=== PATIENT | female | born 1970 | race Caucasian/White ===

== ENCOUNTER → 2016-07-22 | Outpatient (CLI) | payer OTHER ==
--- NOTE | 2016-07-22 12:25 | CT ---
EXAMINATION TYPE: CT brain wo con DATE OF EXAM: 07/22/2016 12:15 PM COMPARISON: 10/16/2014 HISTORY: 45-year-old female with TIA, complains of right forearm and hand numbness. TECHNIQUE: Examination was done in axial plane without intravenous contrast. Coronal and sagittal r econstructions performed. CT DLP: 999.18 mGycm Automated exposure control for dose reduction was used. FINDINGS: There is no evidence of acute intracranial hemorrhage, acute ischemic changes, mass, mass-effect, or extra-axial fluid collection. There is no effacement of cerebral sulci or basal subarachnoid cister ns. There is no hydrocephalus. There is no midline shift. Monroy-white matter distinction is preserv ed. Partial opacification inferior mastoid air cells on both sides. Visualized paranasal sinuses and orbi ts and globes appear within normal limits. IMPRESSION: 1. No acute intracranial abnormality seen. 2. Retained secretions within the mastoid air cells similar to 10/16/2014. Correlate for any mastoid p ain to exclude mastoiditis.
== END | disposition home or self-care (01) ==
LOC: RADCTMAIN 11:40
PROVIDERS: ATTEND Family Medicine
DX: G45.9 Transient cerebral ischemic attack, unspecified (principal)
CPT/HCPCS: 70450

== ENCOUNTER → 2016-08-21 | Day surgery (SDC) | payer OTHER ==
[~2016-08-21] MED LIST: LACTATED RINGERS 1,000 ML IV SCH; MIDAZOLAM 2 MG/2 ML VIAL IVP NR; fentaNYL (PF) 50 MCG/ML 2 ML AMP IV NR
[2016-08-21 11:52] VITALS: RESP 16; TEMP 98.2
[2016-08-21 11:55] VITALS: BP 117/71; PULSE 99
--- NOTE | 2016-08-21 12:36 | P.PCN ---
Date of Procedure: 08/21/16 Preoperative Diagnosis: Postoperative Diagnosis: Procedure(s) Performed: Procedure=1-lumbar puncture . Preoperative diagnoses= multiple sclerosis. Postoperative diagnosis= multiple sclerosis. Anesthesia= IV sedation with Versed 1 mg and fentanyl 50 mcg ,and local lidocaine infiltration 1% 2 mL for skin and subcu infiltration. Condition= stable. Complications=none. Indication for the procedure= patient with a history of symptoms suggestive of multiple sclerosis and she was referred to have a lumbar puncture for diagnostic study procedure risk and benefits and alternatives discussed with the patient and she agreed with the preceding, Description of the procedure= patient in the procedure room sitting position and monitors applied, the back prepped with chlorhexidine 3, sterile technique , local infiltration of the skin and subcu interstitial with lidocaine 1% 2 mL, then 22-gauge quickie Needle advanced slowly at L4 5 interlaminar space, the cerebrospinal fluid was clear, and no heme no paresthesia, a total of 8 mL of clear cerebrospinal fluid collected in 4 different tubes, the needle removed, Band-Aid applied , patient tolerated the procedure well without any complications, and further management as per her neurologist Implants: Indications for Procedure: Operative Findings: Description of Procedure:
[2016-08-21 15:09] LABS: Glucose,CSF 60 mg/dL (40-70)
[2016-08-21 15:44] LABS: Appearance,CSF Clear
[2016-08-21 16:00] LABS: ALT 45 U/L (9-52); AST 31 U/L (14-36)
[2016-08-21 16:04] LABS: Rheumatoid Factor, Qnt <9 IU/mL (<12)
[2016-08-21 19:38] LABS: Treponemal Ab Non-Reactive (Non-Reactive)
[2016-08-21 21:16] LABS: ANA w/Reflex to Titer NEGATIVE (NEGATIVE)
[2016-08-22 03:08] LABS: Lyme Antibodies Total(IgG/IgM) 0.05 (<0.90)
[2016-08-23 12:01] LABS: IgG Synthesis Rate 0.29 mg/day (0.00 - 3.00); Immunoglobulin G 927 mg/dL (700 - 1600)
[2016-08-25 05:20] LABS: Lyme Specimen Source Not Provided
== END ==
LOC: PROCWHC3 11:21
PROVIDERS: ATTEND Specialist
DX: G35 Multiple sclerosis (principal)
CPT/HCPCS: 86235 ×3; 87476; 86592; 86618; 84439; 88108; 84157; 82945; 82040; 82042; 82784; 83916; 82164 ×2; 83873; 84443; 84450; 84460; 85730; 86431; 85613; 89050; 86780; 86038; 86225; 96374; 62270; 36415; J2250; J3010

== ENCOUNTER 2019-06-09 07:19 | Emergency (ER) | payer SELFPAY ==
[2019-06-09 07:30] VITALS: TEMP 97.5
[2019-06-09] MEDS ORDERED: KETOROLAC 30 MG/ML 1 ML VIAL IVP STA (07:42)
[2019-06-09] MEDS ORDERED: SODIUM CHLORIDE 0.9% 1,000 ML IV STA (07:42)
[2019-06-09] MEDS ORDERED: MORPHINE SULFATE 4 MG/ML SYRINGE IV STA (07:42)
[2019-06-09] MEDS ORDERED: ORPHENADRINE 30 MG/ML 2 ML VIAL IVP STA (07:43)
--- NOTE | 2019-06-09 07:48 | ED ---
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 Patient is a nurse aide. Patient states that she is having some back spasms and pain breathing as well as noted dysuria. Patient reports that she's had no fever. She reports that the pain radiates from around her left flank area. She does reports worse with movement. Patient states she's had no other complaints. - Related Data Home Medications Medication Instructions Recorded Confirmed Levothyroxine Sodium [Synthroid] 112 mcg PO DAILY 09/11/14 01/25/17 Gabapentin [Neurontin] 300 mg PO TID 08/21/16 01/25/17 Ibuprofen [Motrin] 800 mg PO TID PRN 08/21/16 01/25/17 Pregabalin [Lyrica] 75 mg PO TID 08/21/16 01/25/17 Ciprofloxacin HCl [Cipro] 500 mg PO Q12HR 01/25/17 01/25/17 methylPREDNISolone [Medrol Dose 4 mg PO DIRECTED 01/25/17 01/25/17 Pack] Previous Rx's Medication Instructions Recorded Cephalexin [Keflex] 500 mg PO Q8HR #21 cap 06/09/19 Ibuprofen [Motrin] 800 mg PO Q8H #20 tab 06/09/19 Orphenadrine [Norflex] 100 mg PO Q12H #12 tablet.er 06/09/19 Allergies Allergy/AdvReac Type Severity Reaction Status Date / Time Penicillins Allergy Unknown Verified 01/25/17 01:39 Childhood Review of Systems ROS Statement: Those systems with pertinent positive or pertinent negative responses have been documented in the HPI. ROS Other: All systems not noted in ROS Statement are negative. Past Medical History Past Medical History: Thyroid Disorder Additional Past Medical History / Comment(s): Lumbar puncture being done 08-21-16 to rule out MS. bladder dysfunction - 8 years ago (straight cathed for 6 months) unknown reason History of Any Multi-Drug Resistant Organisms: None Reported Past Surgical History: Tubal Ligation Additional Past Surgical History / Comment(s): thyroid removed Past Psychological History: No Psychological Hx Reported Smoking Status: Current every day smoker Past Alcohol Use History: Occasional Past Drug Use History: None Reported General Exam - General Exam Comments Initial Comments: Alert and oriented 48-year-old female. No distress. Limitations: no limitations General appearance: alert, in no apparent distress Head exam: Present: atraumatic, normocephalic, normal inspection Eye exam: Present: normal appearance, PERRL, EOMI. Absent: scleral icterus, conjunctival injection, periorbital swelling ENT exam: Present: normal exam, mucous membranes moist Neck exam: Present: normal inspection. Absent: tenderness, meningismus, lymphadenopathy Respiratory exam: Present: normal lung sounds bilaterally. Absent: respiratory distress, wheezes, rales, rhonchi, stridor Cardiovascular Exam: Present: regular rate, normal rhythm, normal heart sounds. Absent: systolic murmur, diastolic murmur, rubs, gallop, clicks GI/Abdominal exam: Present: soft, normal bowel sounds. Absent: distended, tenderness, guarding, rebound, rigid Extremities exam: Present: normal inspection, full ROM, normal capillary refill. Absent: tenderness, pedal edema, joint swelling, calf tenderness Back exam: Present: normal inspection, tenderness (Over lumbar spine) Neurological exam: Present: alert, oriented X3, CN II-XII intact Psychiatric exam: Present: normal affect, normal mood Skin exam: Present: warm, dry, intact, normal color. Absent: rash Course Vital Signs 06/09/19 06/09/19 06/09/19 07:28 07:30 08:30 Temperature 97.5 F L Pulse Rate 84 78 Respiratory 17 20 Rate Blood Pressure 132/84 O2 Sat by Pulse 100 98 Oximetry 06/09/19 06/09/19 06/09/19 09:00 09:07 09:10 Temperature Pulse Rate 80 Respiratory Rate Blood Pressure 119/77 O2 Sat by Pulse 99 100 99 Oximetry 06/09/19 06/09/19 06/09/19 09:20 09:30 09:40 Temperature Pulse Rate Respiratory Rate Blood Pressure 119/77 119/77 104/73 O2 Sat by Pulse 100 99 98 Oximetry 06/09/19 10:31 Temperature Pulse Rate 72 Respiratory 16 Rate Blood Pressure 113/67 O2 Sat by Pulse 98 Oximetry Medical Decision Making - Medical Decision Making [id number] female presents lower back pain. Patient was given IV pain medication however 15. Blood work and labs are unremarkable. She does have some minor any symptoms of UTI. Discussed culture we completed. Patient advised this time but no clinical concern for pyelonephritis. Patient's pain is reproducible with movement. Patient discharged and temperature medicine. Given a note for work for avoiding heavy straining or lifting patients. - Lab Data Result diagrams: 06/09/19 08:20 06/09/19 08:20 Lab Results 06/09/19 06/09/19 06/09/19 Range/Units 08:20 08:20 08:20 WBC 8.6 (3.8-10.6) k/uL RBC 4.59 (3.80-5.40) m/uL Hgb 14.6 (11.4-16.0) gm/dL Hct 44.6 (34.0-46.0) % MCV 97.2 (80.0-100.0) fL MCH 31.8 (25.0-35.0) pg MCHC 32.7 (31.0-37.0) g/dL RDW 13.5 (11.5-15.5) % Plt Count 333 (150-450) k/uL Neutrophils % 75 % Lymphocytes % 17 % Monocytes % 5 % Eosinophils % 1 % Basophils % 1 % Neutrophils # 6.5 (1.3-7.7) k/uL Lymphocytes # 1.4 (1.0-4.8) k/uL Monocytes # 0.4 (0-1.0) k/uL Eosinophils # 0.0 (0-0.7) k/uL Basophils # 0.0 (0-0.2) k/uL Sodium 137 (137-145) mmol/L Potassium 4.5 (3.5-5.1) mmol/L Chloride 103 (98-107) mmol/L Carbon Dioxide 27 (22-30) mmol/L Anion Gap 7 mmol/L BUN 23 H (7-17) mg/dL Creatinine 0.64 (0.52-1.04) mg/dL Est GFR (CKD-EPI)AfAm >90 (>60 ml/min/1.73 sqM) Est GFR (CKD-EPI)NonAf >90 (>60 ml/min/1.73 sqM) Glucose 128 H (74-99) mg/dL Calcium 9.4 (8.4-10.2) mg/dL Total Bilirubin 0.3 (0.2-1.3) mg/dL AST 23 (14-36) U/L ALT 16 (4-34) U/L Alkaline Phosphatase 108 (38-126) U/L Total Protein 7.6 (6.3-8.2) g/dL Albumin 4.4 (3.5-5.0) g/dL Lipase 82 (23-300) U/L Urine Color Yellow Urine Appearance Clear (Clear) Urine pH 5.5 (5.0-8.0) Ur Specific [place] 1.023 (1.001-1.035) Urine Protein Negative (Negative) Urine Glucose (UA) Negative (Negative) Urine Ketones Negative (Negative) Urine Blood Trace H (Negative) Urine Nitrite Negative (Negative) Urine Bilirubin Negative (Negative) Urine Urobilinogen <2.0 (<2.0) mg/dL Ur Leukocyte Esterase Moderate H (Negative) Urine RBC 3 (0-5) /hpf Urine WBC 9 H (0-5) /hpf Ur Squamous Epith Cells 3 (0-4) /hpf Urine Bacteria Rare H (None) /hpf Urine Mucus Rare H (None) /hpf - Radiology Data Radiology results: report reviewed Patchy attenuation in the left perihilar region is likely artifactual. Prominent hilum may reflect pulmonary arteries or pulmonary hypertension. Short-term computed tomography scan to be obtained if there is concern for at an opacity or pulmonary arterial hypertension. Correlating for COPD. KUB shows nonspecific abdomen. Lumbar spine x-ray shows fast arthropathy at L5-S1. Follow-up MRI can be obtained is warranted. Disposition Clinical Impression: Back spasm, UTI (urinary tract infection) Disposition: HOME SELF-CARE Condition: Good Instructions (If sedation given, give patient instructions): Urinary Tract Inf ection in Women (ED), Muscle Spasm (ED) Additional Instructions: Please use medication as discussed. Please follow up with family doctor if symptoms have not improved over the next two days. Please return to the emergency room if your symptoms increase or worsen or for any other concerns. Prescriptions: Cephalexin [Keflex] 500 mg PO Q8HR #21 cap Ibuprofen [Motrin] 800 mg PO Q8H #20 tab Orphenadrine [Norflex] 100 mg PO Q12H #12 tablet.er Is patient prescribed a controlled substance at d/c from ED?: No Referrals: Sergio Shaffer MD [Primary Care Provider] - 1-2 days Time of Disposition: 10:09
[2019-06-09 08:42] LABS: Basophils % (A) 1 %; Eosinophils % (A) 1 %; HCT 44.6 % (34.0-46.0); HGB 14.6 gm/dL (11.4-16.0); Lymphocytes # (A) 1.4 k/uL (1.0-4.8); Lymphocytes % (A) 17 %; MCH 31.8 pg (25.0-35.0); MCHC 32.7 g/dL (31.0-37.0); MCV 97.2 fL (80.0-100.0); Mean Platelet Volume 7.2; Monocytes # (A) 0.4 k/uL (0-1.0); Monocytes % (A) 5 %; Neutrophils # (A) 6.5 k/uL (1.3-7.7); Neutrophils % (A) 75 %; Platelet Count 333 k/uL (150-450); RBC 4.59 m/uL (3.80-5.40); RDW 13.5 % (11.5-15.5); WBC 8.6 k/uL (3.8-10.6)
[2019-06-09 08:45] LABS: ALT 16 U/L (4-34); AST 23 U/L (14-36); African American GFR (CKD) >90 (>60 ml/min/1.73 sqM); Albumin 4.4 g/dL (3.5-5.0); Alkaline Phosphatase 108 U/L (38-126); Anion Gap 7 mmol/L; Blood Urea Nitrogen 23 mg/dL (7-17); Calcium 9.4 mg/dL (8.4-10.2); Carbon Dioxide 27 mmol/L (22-30); Chloride 103 mmol/L (98-107); Glucose 128 mg/dL (74-99); Non-African American GFR(CKD) >90 (>60 ml/min/1.73 sqM); Potassium 4.5 mmol/L (3.5-5.1); Sodium 137 mmol/L (137-145); Total Bilirubin 0.3 mg/dL (0.2-1.3); Total Protein 7.6 g/dL (6.3-8.2)
--- NOTE | 2019-06-09 08:47 | XR ---
EXAMINATION TYPE: XR KUB DATE OF EXAM: 06/09/2019 COMPARISON: NONE HISTORY: Pain TECHNIQUE: One view abdominal series FINDINGS: The osseous structures are intact. The bowel gas pattern is nonspecific. Lung bases are clear. Lakeisha ined fecal debris throughout the left colon. IMPRESSION: 1. Nonspecific abdomen.
--- NOTE | 2019-06-09 08:47 | XR ---
EXAMINATION TYPE: XR chest 2V DATE OF EXAM: 06/09/2019 COMPARISON: 01/25/2017 TECHNIQUE: PA and lateral views submitted. HISTORY: Chest pain FINDINGS: The lungs are clear and there is no pneumothorax, pleural effusion, or focal pneumonia. Mild promin ence of the pulmonary arteries is stable. Mild hyperinflation. Hypertrophic and degenerative change o f the spine. Patchy density in the left upper lobe. IMPRESSION: 1. Patchy attenuation the left perihilar region likely is artifactual correlate clinically. 2. Prominent hilum bilaterally may reflect prominent pulmonary arteries and pulmonary arterial hypert ension. Correlate clinically. Short-term follow-up CT scan of the chest could BE obtained if there is concern for adenopathy or pulmonary arterial hypertension. 3. Correlate for COPD.
--- NOTE | 2019-06-09 08:48 | XR ---
EXAM TYPE: LUMBAR SPINE X RAY SERIES COMPARISON: NONE HISTORY: Pain TECHNIQUE: 3 views are submitted. FINDINGS: Alignment is anatomic. The pedicles are intact. The transverse processes are intact. There is no s pondylolisthesis. Chronic appearing deformity of the left transverse process. Vascular calcification s noted. Facet arthropathy L5-S1. IMPRESSION: 1. Facet arthropathy L5-S1. Follow-up MRI could BE obtained as clinically warranted..
[2019-06-09 09:17] LABS: Appearance,Urine Clear (Clear); Bacteria,Urine Rare /hpf; Bilirubin,Urine Negative (Negative); Blood,Urine Trace (Negative); Color,Urine Yellow; Glucose,Urine (UA) Negative (Negative); Ketones,Urine Negative (Negative); Leukocyte Esterase,Urine Moderate (Negative); Mucus,Urine Rare /hpf; Nitrite,Urine Negative (Negative); PH, Urine 5.5 (5.0-8.0); Protein,Urine Negative (Negative); RBC,Urine 3 /hpf (0-5); Specific Gravity,Urine 1.023 (1.001-1.035); Squamous Epithelial Cell,Urine 3 /hpf (0-4); Urobilinogen,Urine <2.0 mg/dL (<2.0); WBC,Urine 9 /hpf (0-5)
[2019-06-09 10:32] VITALS: BP 113/67; PULSE 72; RESP 16
== END 2019-06-09 10:32 | disposition home or self-care (01) ==
LOC: EC 07:19
DX: N39.0 Urinary tract infection, site not specified (principal); E07.9 Disorder of thyroid, unspecified; F17.200 Nicotine dependence, unspecified, uncomplicated; Z88.0 Allergy status to penicillin; Z79.52 Long term (current) use of systemic steroids; Z79.890 Hormone replacement therapy; Z79.899 Other long term (current) drug therapy
CPT/HCPCS: 36415; 80053; 83690; 85025; 81001; 72100; 71046; 74018; 99284; 96374; 96375 ×2; 96361; J2270; J2360; J1885

== ENCOUNTER 2019-10-25 02:53 | Emergency (ER) | payer OTHER ==
[2019-10-25 03:02] VITALS: RESP 18
[2019-10-25] MEDS ORDERED: IBUPROFEN 600 MG TAB PO STA (03:13)
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
[2019-10-25] MEDS ORDERED: ACET/COD 300 MG/30 MG STARTER PACK 6 TAB BTL PO STA (03:23)
--- NOTE | 2019-10-25 03:48 | XR ---
EXAMINATION TYPE: XR ankle complete LT DATE OF EXAM: 10/25/2019 COMPARISON: NONE HISTORY: Pain. TECHNIQUE: 3 views FINDINGS: There is soft tissue swelling over the lateral malleolus. I see no fracture nor dislocation . Joint spaces are normal. IMPRESSION: Soft tissue swelling. No fracture seen.
--- NOTE | 2019-10-25 03:50 | XR ---
EXAMINATION TYPE: XR foot complete LT DATE OF EXAM: 10/25/2019 COMPARISON: NONE HISTORY: Fall. Pain. TECHNIQUE: 3 views FINDINGS: Metatarsals are intact. I see no fracture nor dislocation. Joint spaces appear normal. IMPRESSION: Negative left foot exam. No fracture.
[2019-10-25 04:20] VITALS: BP 121/73; PULSE 74; TEMP 98
== END 2019-10-25 04:15 | disposition home or self-care (01) ==
LOC: EC 02:53
DX: S99.912A Unspecified injury of left ankle, initial encounter (principal); M79.89 Other specified soft tissue disorders; F17.200 Nicotine dependence, unspecified, uncomplicated; E07.9 Disorder of thyroid, unspecified; Z79.890 Hormone replacement therapy; Z88.0 Allergy status to penicillin; V20.1 Motorcycle passenger injured in collision with pedestrian or animal in nontraffic accident
CPT/HCPCS: 99283

== ENCOUNTER 2022-03-24 17:46 | Emergency (ER) | payer OTHER ==
[2022-03-24] MEDS ORDERED: ACETAMINOPHEN TAB 500 MG TAB PO STA (18:06)
--- NOTE | 2022-03-24 18:14 | ED ---
URI HPI - General Chief Complaint: Upper Respiratory Infection Stated Complaint: NVD,Fever Time Seen by Provider: 03/24/22 18:00 Source: patient, RN notes reviewed Mode of arrival: ambulatory Limitations: no limitations - History of Present Illness Initial Comments: This is a pleasant 51-year-old female with history of cigarette smoking and thyroid disease. Patient presents to the emergency department today complaining of body aches, fever, cough, runny nose, nausea, diarrhea. Patient describing some chest discomfort only with coughing. No abdominal pain. Denies significant headache or neck stiffness, no changes in vision or hearing, no sore throat or difficulty with speech, no neck pain, no chest pain or shortness of breath, no abdominal pain, no numbness or tingling, no extremity pain, no skin rashes or lesions. Past medical, surgical, social, and family history reviewed. MD Complaint: fever, cough, rhinorrhea, nasal congestion - Related Data Home Medications Medication Instructions Recorded Confirmed Levothyroxine Sodium [Synthroid] 112 mcg PO DAILY 09/11/14 01/25/17 Gabapentin [Neurontin] 300 mg PO TID 08/21/16 01/25/17 Ibuprofen [Motrin] 800 mg PO TID PRN 08/21/16 01/25/17 Pregabalin [Lyrica] 75 mg PO TID 08/21/16 01/25/17 Ciprofloxacin HCl [Cipro] 500 mg PO Q12HR 01/25/17 01/25/17 methylPREDNISolone [Medrol Dose 4 mg PO DIRECTED 01/25/17 01/25/17 Pack] Previous Rx's Medication Instructions Recorded Cephalexin [Keflex] 500 mg PO Q8HR #21 cap 06/09/19 Ibuprofen [Motrin] 800 mg PO Q8H #20 tab 06/09/19 Orphenadrine [Norflex] 100 mg PO Q12H #12 tablet.er 06/09/19 Allergies Allergy/AdvReac Type Severity Reaction Status Date / Time Penicillins Allergy Unknown Verified 03/24/22 17:56 Childhood Review of Systems ROS Statement: Those systems with pertinent positive or pertinent negative responses have been documented in the HPI. ROS Other: All systems not noted in ROS Statement are negative. Past Medical History Past Medical History: Thyroid Disorder Additional Past Medical History / Comment(s): Lumbar puncture being done 08-21-16 to rule out MS. bladder dysfunction - 8 years ago (straight cathed for 6 months) unknown reason History of Any Multi-Drug Resistant Organisms: None Reported Past Surgical History: Tubal Ligation Additional Past Surgical History / Comment(s): thyroid removed Past Psychological History: No Psychological Hx Reported Smoking Status: Current every day smoker Past Alcohol Use History: Occasional Past Drug Use History: None Reported General Exam - General Exam Comments Initial Comments: Patient mild distress. Does not appear to be in any respiratory distress. Appears to be ill but not toxic. Well hydrated. Capillary refill normal. No mottling Limitations: no limitations General appearance: alert, in no apparent distress, in distress Head exam: Present: atraumatic, normocephalic, normal inspection Eye exam: Present: normal appearance, PERRL, EOMI. Absent: scleral icterus, conjunctival injection, periorbital swelling ENT exam: Present: normal exam, normal oropharynx, mucous membranes moist, TM's normal bilaterally, normal external ear exam, other (Patient has a mucoid nasal discharge with nasal stuffiness). Absent: mucous membranes dry Neck exam: Present: normal inspection, full ROM, lymphadenopathy (Nontender posterior cervical lymphadenopathy). Absent: tenderness, meningismus Respiratory exam: Present: rhonchi (Scattered rhonchi bilaterally), chest wall tenderness. Absent: normal lung sounds bilaterally, respiratory distress, wheezes, rales, stridor, accessory muscle use, decreased breath sounds, prolonged expiratory Cardiovascular Exam: Present: regular rate, normal rhythm, normal heart sounds. Absent: systolic murmur, diastolic murmur, rubs, gallop, clicks GI/Abdominal exam: Present: soft, normal bowel sounds. Absent: distended, tenderness, guarding, rebound, rigid Extremities exam: Present: normal inspection, full ROM, normal capillary refill. Absent: tenderness, pedal edema, joint swelling, calf tenderness Back exam: Present: normal inspection Neurological exam: Present: alert, oriented X3, CN II-XII intact Psychiatric exam: Present: normal affect, normal mood Skin exam: Present: warm, dry, intact, normal color. Absent: rash Course Vital Signs 03/24/22 03/24/22 17:54 19:30 Temperature 100.6 F H 100.0 F H Pulse Rate 104 H Respiratory 20 Rate Blood Pressure 131/85 O2 Sat by Pulse 96 Oximetry - Reevaluation(s) Reevaluation #1: 12/25/22 20:34 Medical record is reviewed Symptoms are improved here in the emergency department Patient is informed of results and questions answered Patient in no distress Medical Decision Making - Medical Decision Making Was pt. sent in by a medical professional or institution? @ -no Did you speak to anyone other than the patient for history? @ -no Did you review nursing and triage notes? @ -yes Were old charts reviewed? @ -no Differential Diagnosis? @ -Differential diagnosis: Influenza, COVID-19, RSV, other viral illness with subsequent viral syndrome. I will your eye, Possible bacterial pneumonia Does not appear to be consistent with cardiac disease. Does not appear to be consistent with other intra-abdominal pathology such as cholecystitis or appendicitis. This is not all-inclusive list. EKG interpreted by me (3pts min.)? @ - X-rays interpreted by me (1pt min.)? @ -[none] CT interpreted by me (1pt min.)? @ -[none] U/S interpreted by me (1pt. min.)? @ -[none] What testing was considered but not performed? (CT, X-rays, U/S, labs)? Why? @I did consider laboratory investigations to include blood work such as CBC, CMP, however patient appears to have symptoms consistent with a viral upper respiratory infection. I do not believe this would change the disposition or treatment plan. These were deferred. What meds were considered but not given? Why? @ -[none] Did you discuss the management of the patient with other professionals? @ -ED attending physician Did you reconcile home meds? @ -[none] Was smoking cessation discussed for >3mins.? @ -I discussed smoking cessation for greater than 3 minutes. The risk of smoking were discussed with the patient including but not limited to risks of cancer, stroke, coronary artery disease and COPD. Also discussed with patient were multiple methods of quitting smoking. Lastly we discussed the financial cost of smoking. Was critical care preformed (if so, how long)? @ -[none] Were there social determinants of health that impacted care today? How? (Homelessness, low income, unemployed, alcoholism, drug addiction, transportation, low edu. Level, literacy, decrease access to med. care, longterm, rehab)? @ -Not applicable Was there de-escalation of care discussed even if they declined? (Discuss DNR or withdrawal of care, Hospice)? @ -Not applicable What co-morbidities impacted this encounter? (DM, HTN, Smoking, COPD, CAD, Cancer, CVA, Hep., AIDS, mental health diagnosis, sleep apnea, morbid obesity)? @ -Thyroid disease, cigarette smoking Was patient admitted / discharged? @ -[Patient was much improved after antipyretics and antiemetics. Patient positive for influenza A. Discussed disease course and prognosis. Discussed conservative therapy.] Undiagnosed new problem with uncertain prognosis? @ -[none] Drug Therapy requiring intensive monitoring for toxicity (Heparin, Nitro, Insulin, Cardizem)? @ -[none] Were any procedures done? @ -[none] Diagnosis/symptom? @ -[default] Acute, or Chronic, or Acute on Chronic? @ -Acute Uncomplicated (without systemic symptoms) or Complicated (systemic symptoms)? @ -Uncomplicated Side effects of treatment? @ -[none] Exacerbation, Progression, or Severe Exacerbation] @ -[no] Poses a threat to life or bodily function? @ -Unlikely Patient was told to return to the ER for any signs or symptoms worsen. Told to return immediately if any other problems arise. All questions answered. Treatment plan discussed. Patient in agreement Every effort has been made to ensure accuracy of this dictation. However, due to the limitations of electronic medical records and dictation devices, errors in charting still occur. The case was discussed in detail with ED attending physician. Presentation, findings, treatment plan discussed in detail. Supervising physician Dr. Washburn - Lab Data Lab Results 03/24/22 Range/Units 18:30 Influenza Type A (PCR) Detected A (Not Detectd) Influenza Type B (PCR) Not Detected (Not Detectd) RSV (PCR) Not Detected (Not Detectd) SARS-CoV-2 (PCR) Not Detected (Not Detectd) - Radiology Data Radiology results: report reviewed, image reviewed Two-view chest x-ray interpreted by me shows no evidence of acute findings. I did review the radiology interpretation. Disposition Clinical Impression: Influenza A, Nausea Disposition: HOME SELF-CARE Condition: Good Instructions (If sedation given, give patient instructions): Influenza (ED) Additional Instructions: Follow-up with your regular physician as directed. Return to the ER immediately if any symptoms worsen, new symptoms arise, or any other problems develop. Is patient prescribed a controlled substance at d/c from ED?: No Referrals: Karina Hardin MD [STAFF PHYSICIAN] - 03/29/22 Time of Disposition: 20:35
--- NOTE | 2022-03-24 18:25 | XR ---
EXAMINATION TYPE: XR chest 2V DATE OF EXAM: 03/24/2022 COMPARISON: 06/09/2019 HISTORY: Cough TECHNIQUE: FINDINGS: Heart and mediastinum are normal. Lungs are clear. Diaphragm is normal. Bony thorax is inta ct. IMPRESSION: Normal chest. No change.
[2022-03-24 19:48] VITALS: TEMP 100
[2022-03-24] MEDS ORDERED: ONDANSETRON ODT 4 MG TAB PO STA (20:06)
[2022-03-24] MEDS ORDERED: ONDANSETRON 4 MG ODT STARTER PACK 2 TAB BTL PO STA (20:34)
[2022-03-24 21:00] VITALS: BP 134/78; PULSE 88; RESP 16
== END 2022-03-24 21:01 | disposition home or self-care (01) ==
LOC: EC 17:46
DX: J10.1 Influenza due to other identified influenza virus with other respiratory manifestations (principal); E07.9 Disorder of thyroid, unspecified; F17.200 Nicotine dependence, unspecified, uncomplicated; Z88.0 Allergy status to penicillin; Z79.890 Hormone replacement therapy; Z20.822 Contact with and (suspected) exposure to COVID-19
CPT/HCPCS: 87636; 71046; 99284; S0119

== ENCOUNTER → 2023-12-04 | Outpatient (CLI) | payer OTHER ==
[2023-12-04 18:23] LABS: Basophils # (A) 0.06 X 10*3/uL (0.00-0.10); Basophils % (A) 1.3 %; Eosinophils # (A) 0.05 X 10*3/uL (0.04-0.35); Eosinophils % (A) 1.1 %; HCT 42.4 % (37.2-46.3); Lymphocytes # (A) 1.68 X 10*3/uL (0.90-5.00); Lymphocytes % (A) 37.2 %; MCH 32.3 pg (27.0-32.0); MCV 97.7 FL (80.0-97.0); Mean Platelet Volume 9.5 FL (9.5-12.2); Monocytes # (A) 0.43 X 10*3/uL (0.20-1.00); Monocytes % (A) 9.5 %; NRBC Per 100 WBC 0 X 10*3/uL (0.00-0.01); Neutrophils # (A) 2.29 X 10*3/uL (1.80-7.70); Neutrophils % (A) 50.7 %; Platelet Count 268 X 10*3/uL (140-440); RBC 4.34 X 10*6/uL (4.10-5.20); RDW 13.6 % (11.5-14.5); WBC 4.52 X 10*3/uL (4.50-10.00)
[2023-12-04 18:49] LABS: ALT 18 U/L (8-44); AST 16 U/L (13-35); Albumin 4.7 g/dL (3.8-4.9); Albumin/Globulin Ratio 2.04 Ratio (1.60-3.17); Alkaline Phosphatase 80 U/L (41-126); BUN/Creat Ratio 19.86 Ratio (12.00-20.00); Blood Urea Nitrogen 13.9 mg/dL (9.0-27.0); Calcium 9.5 mg/dL (8.7-10.3); Cancer Antigen 125 26.1 U/mL (0.0-30.1); Cancer Antigen 19-9 7.6 U/mL (0.0-34.9); Carbon Dioxide 27.4 mmol/L (21.6-31.8); Chloride 103 mmol/L (96-109); Globulin 2.3 g/dL (1.6-3.3); Glucose 90 mg/dL (70-110); Potassium 4.9 mmol/L (3.5-5.5); Sodium 140 mmol/L (135-145); Total Bilirubin 0.2 mg/dL (0.3-1.2)
== END | disposition home or self-care (01) ==
LOC: LABWHC1 13:00
PROVIDERS: ATTEND Family Medicine
DX: Z01.818 Encounter for other preprocedural examination (principal); E03.9 Hypothyroidism, unspecified; N83.202 Unspecified ovarian cyst, left side; N83.201 Unspecified ovarian cyst, right side; R19.00 Intra-abdominal and pelvic swelling, mass and lump, unspecified site
CPT/HCPCS: 36415; 80053; 82378; 83520; 85025; 86301; 86304; 86336